=== PATIENT | female | born 1995 | race Caucasian/White ===

== ENCOUNTER 2016-03-24 21:06 | Emergency (ER) | payer MEDICAID ==
[~2016-03-24] VITALS: Ht 162.6 cm; Wt 81.6 kg
[~2016-03-24 21:06] MED LIST: ALBU17AE26 INH
[2016-03-24 21:23] VITALS: BP 139/81; PULSE 81; RESP 18; TEMP 97.2; O2SAT 99
[2016-03-24] MEDS ORDERED: HYDROcodone/ACETAMIN 7.5-325 MG TAB PO ONE (21:30)
[2016-03-24] MEDS ORDERED: KETOROLAC TROMETHAMINE 60 MG/2 ML VIAL IM ONE (21:30)
[2016-03-24 22:25] VITALS: BP 125/80; PULSE 80; RESP 18; TEMP 97.2; O2SAT 99
== END 2016-03-24 22:25 | disposition home or self-care (01) ==
LOC: SED 21:06
DX: M22.2X1 Patellofemoral disorders, right knee (principal)
CPT/HCPCS: 73564; 81025; 96372; 99284; J1885

== ENCOUNTER 2016-09-22 22:13 | Emergency (ER) | payer MEDICAID ==
[~2016-09-22] VITALS: Ht 162.6 cm; Wt 90.7 kg
[2016-09-22 22:23] VITALS: BP_SYST 117
[2016-09-23] MEDS ORDERED: DIPHENHYDRAMINE HCL 25 MG CAPSULE PO ONE (01:00)
[2016-09-23] MEDS ORDERED: HYDROcodone/ACETAMIN 10-325 MG TAB PO ONE (01:00)
[2016-09-23] MEDS ORDERED: IBUPROFEN 800 MG TABLET PO ONE (01:00)
[2016-09-23 01:15] VITALS: BP_SYST 114
[2016-09-23 02:32] LABS: BILIRUBIN,URINE NEGATIVE (NEGATIVE); CLARITY/URINE CLEAR (CLEAR); COLOR,URINE YELLOW (YELLOW); GLUCOSE,URINE NEGATIVE (NEGATIVE); KETONES,URINE NEGATIVE (NEGATIVE); LEUKOCYTE ESTERASE ,URINE NEGATIVE (NEGATIVE); NITRITE, URINE NEGATIVE (NEGATIVE); PH,URINE 5.5 (5.0-8.0); PROTEIN URINE NEGATIVE (NEGATIVE); UROBILINOGEN,URINE 0.2 (0.2-1.0)
[2016-09-23 02:35] LABS: BLOOD, URINE TRACE (NEGATIVE)
[2016-09-23 02:47] LABS: BACTERIA,URINE MODERATE /HPF (None Seen); WBC,URINE 0-3 /HPF (0-3)
== END 2016-09-23 01:15 | disposition home or self-care (01) ==
LOC: SED 22:13
DX: H66.93 Otitis media, unspecified, bilateral (principal); R51 Headache; J45.909 Unspecified asthma, uncomplicated; R09.89 Other specified symptoms and signs involving the circulatory and respiratory systems
CPT/HCPCS: 70450; 81000; 81025; 87086; 99285; Q0163

== ENCOUNTER 2017-09-24 18:39 | Emergency (ER) | payer MEDICAID ==
[~2017-09-24] VITALS: Ht 162.6 cm; Wt 83.9 kg
[2017-09-24 18:51] VITALS: BP_SYST 129
[2017-09-24 19:41] VITALS: BP_SYST 128
== END 2017-09-24 19:41 | disposition home or self-care (01) ==
LOC: SED 18:39
DX: O9A.212 Injury, poisoning and certain other consequences of external causes complicating pregnancy, second trimester (principal); S90.851A Superficial foreign body, right foot, initial encounter; J45.909 Unspecified asthma, uncomplicated; Z3A.24 24 weeks gestation of pregnancy; W45.8XXA Other foreign body or object entering through skin, initial encounter; Y93.89 Activity, other specified; Y92.89 Other specified places as the place of occurrence of the external cause; Y99.8 Other external cause status
CPT/HCPCS: 81002-TC; 96361; 99284

== ENCOUNTER 2019-08-11 21:15 | Emergency (ER) | payer MEDICAID, SELFPAY ==
[~2019-08-11] VITALS: Ht 162.6 cm; Wt 92.5 kg
[2019-08-11 21:50] VITALS: BP_SYST 122
[2019-08-11] MEDS ORDERED: ACETAMINOPHEN 500 MG TABLET PO ONE (22:00)
[2019-08-11] MEDS ORDERED: GLU500 PO (22:04)
[2019-08-11] MEDS ORDERED: GLIP5TAB13 PO (22:06)
[2019-08-11] MEDS ORDERED: LISI2.5T48 PO (22:06)
[2019-08-11] MEDS ORDERED: ALBU8.5H8 INH (22:06)
[2019-08-11] MEDS ORDERED: Atorvastatin PO (22:08)
[2019-08-11 22:31] LABS: BASOPHILS % (AUTO) 0.4 % (0.0-2.0); EOSINOPHILS % (AUTO) 0.2 % (0.0-4.0); HEMATOCRIT 37.5 % (36-48); HEMOGLOBIN 12.3 g/dL (12.0-16.0); LYMPHOCYTES # (AUTO) 1.2 K/uL (1.0-5.5); LYMPHOCYTES % (AUTO) 28.2 % (20.5-51.5); MEAN CORPUSCULAR HEMOGLOBIN 25 pg (27-31); MEAN CORPUSCULAR HGB CONC 33 % (32-36); MEAN CORPUSCULAR VOLUME 77 fL (79.0-98.0); MONOCYTES # (AUTO) 0.3 K/uL (0.0-1.0); NEUTROPHILS # (AUTO) 2.8 K/uL (1.8-7.7); NEUTROPHILS % (AUTO) 64.2 % (40.0-70.0); PLATELET COUNT (AUTO) 204 K/uL (130-430); RED BLOOD CELL COUNT(AUTO) 4.86 MIL/uL (4.2-6.2); RED CELL DISTRIBUTION WIDTH 14.3 % (9.0-15.0); WHITE BLOOD COUNT (AUTO) 4.4 K/uL (4.8-10.8)
[2019-08-11 22:45] LABS: CALCIUM 8.1 mg/dL (8.4-11.0); CREATININE 0.73 mg/dL (0.55-1.30); POTASSIUM 3.8 mmol/L (3.5-5.1)
[2019-08-11 22:54] LABS: PROTHROMBIN TIME 10.3 SECS (9.5-12.5)
[2019-08-11 22:55] LABS: ALBUMIN 3.7 g/dL (3.4-4.8); C-REACTIVE PROTEIN QUANT 2.7 mg/dL (0-0.5); TOTAL BILIRUBIN 0.3 mg/dL (0.0-1.0)
[2019-08-11 23:13] LABS: BILIRUBIN,URINE NEGATIVE (NEGATIVE); BLOOD, URINE 3+ (NEGATIVE); CLARITY/URINE CLOUDY (CLEAR); COLOR,URINE ORANGE (YELLOW); GLUCOSE,URINE NEGATIVE (NEGATIVE); KETONES,URINE TRACE (NEGATIVE); LEUKOCYTE ESTERASE ,URINE TRACE (NEGATIVE); NITRITE, URINE NEGATIVE (NEGATIVE); PROTEIN URINE 1+ (NEGATIVE)
[2019-08-11 23:18] LABS: BACTERIA,URINE FEW /HPF (None Seen); RBC,URINE >100 /HPF (0-3)
[2019-08-11] MEDS ORDERED: ONDANSETRON 4 MG ODT TAB PO ONE (23:30)
[2019-08-11] MEDS ORDERED: IBUPROFEN 800 MG TABLET PO ONE (23:30)
[2019-08-12 02:27] VITALS: BP_SYST 104
== END 2019-08-12 02:27 | disposition home or self-care (01) ==
LOC: SED 21:15
DX: U07.1 COVID-19 (principal); J45.909 Unspecified asthma, uncomplicated; Z79.84 Long term (current) use of oral hypoglycemic drugs; Z79.899 Other long term (current) drug therapy
CPT/HCPCS: 36415; 36600; 71045; 80053; 81000; 82550; 82728; 82803; 82962; 83605; 83615; 83880; 84484; 84702; 85025; 85379; 85384; 85610; 85730; 86140; 87040; 87086; 93005; 99285; Q0162; U0003; C9803-CS

== ENCOUNTER 2019-08-15 12:09 | Emergency (ER) | payer MEDICAID, SELFPAY ==
[~2019-08-15] VITALS: Ht 162.6 cm; Wt 90.7 kg
[~2019-08-15 12:09] MED LIST changes: -ALBU17AE26 INH; +ALBU8.5H8 INH; +Atorvastatin PO; +GLIP5TAB13 PO; +GLU500 PO; +LISI2.5T48 PO
[2019-08-15 12:10] VITALS: BP_SYST 110
--- NOTE | 2019-08-15 12:10 | NUR ---
Patient triaged and placed in OUTSIDE TENT. VSS and patient appears in no acute distress at this time. Accompanied by SELF , awaiting available bed, and MD notified of need for MSE.
--- NOTE | 2019-08-15 12:15 | NUR ---
PT STATES SHE DOES NOT WANT TO WAIT, JUST WANTS ANTIBIOTICS. EXPLAINED SHE WILL HAVE TO BE SEEN BY MD.
--- NOTE | 2019-08-15 12:32 | NUR ---
PT LEFT WITHOUT BEING SEEN BY
== END 2019-08-15 12:32 | disposition left against medical advice (07) ==
LOC: SED 12:09
DX: R53.1 Weakness (principal); Z53.21 Procedure and treatment not carried out due to patient leaving prior to being seen by health care provider

== ENCOUNTER 2020-11-17 08:37 | Emergency (ER) | payer MEDICAID, SELFPAY ==
[~2020-11-17] VITALS: Ht 162.6 cm; Wt 102.1 kg
--- NOTE | 2020-11-17 08:40 | NUR ---
Placed in room 7 . Placed on threat monitoring analyst, blood pressure machine and pulse oximeter. To gown for exam. Side rails up.
--- NOTE | 2020-11-17 08:45 | NUR ---
Pt walked in to ER with c/o abdominal pain / radiating to back, n/v and diarrhea since 99. Denies any fevers at this time. Reports possible food poisoning. V/S stable, no acute distress noted.
[2020-11-17 08:46] VITALS: BP_SYST 138
--- NOTE | 2020-11-17 09:09 | NUR ---
ER Dr. Madrid at bedside examining patient.
[2020-11-17] MEDS ORDERED: NACL 0.9% 1,000 ML IV ONE (09:15)
[2020-11-17] MEDS ORDERED: KETOROLAC TROMETHAMINE 30 MG VIAL IVP ONE (09:15)
[2020-11-17] MEDS ORDERED: ONDANSETRON HCL 4 MG/2 ML VIAL IVP ONE (09:15)
--- NOTE | 2020-11-17 09:20 | NUR ---
# 20 gauge angiocath placed to LAC. Use of asceptic technique. Opsite placed over site. Blood return noted. Blood for lab drawn from site. Flushed with 10 cc of normal saline. No evidence of infiltration noted. Patient tolerated well.
[2020-11-17 09:28] LABS: BILIRUBIN,URINE NEGATIVE (NEGATIVE); BLOOD, URINE 1+ (NEGATIVE); CLARITY/URINE CLEAR (CLEAR); COLOR,URINE YELLOW (YELLOW); GLUCOSE,URINE NEGATIVE (NEGATIVE); KETONES,URINE NEGATIVE (NEGATIVE); LEUKOCYTE ESTERASE ,URINE NEGATIVE (NEGATIVE); NITRITE, URINE NEGATIVE (NEGATIVE); PROTEIN URINE NEGATIVE (NEGATIVE); UROBILINOGEN,URINE 0.2 (0.2-1.0)
[2020-11-17 09:34] LABS: BASOPHILS # (AUTO) 0.1 K/uL (0.0-0.2); BASOPHILS % (AUTO) 0.8 % (0.0-2.0); EOSINOPHILS # (AUTO) 0.2 K/uL (0.0-0.4); EOSINOPHILS % (AUTO) 2.3 % (0.0-4.0); HEMATOCRIT 36.7 % (36-48); HEMOGLOBIN 12.3 g/dL (12.0-16.0); LYMPHOCYTES # (AUTO) 1.3 K/uL (1.0-5.5); LYMPHOCYTES % (AUTO) 17.6 % (20.5-51.5); MEAN CORPUSCULAR HEMOGLOBIN 26 pg (27-31); MEAN CORPUSCULAR HGB CONC 34 % (32-36); MEAN CORPUSCULAR VOLUME 78 fL (79.0-98.0); MONOCYTES # (AUTO) 0.3 K/uL (0.0-1.0); MONOCYTES % (AUTO) 4.7 % (1.7-9.3); NEUTROPHILS # (AUTO) 5.4 K/uL (1.8-7.7); NEUTROPHILS % (AUTO) 74.6 % (40.0-70.0); PLATELET COUNT (AUTO) 362 K/uL (130-430); RED BLOOD CELL COUNT(AUTO) 4.68 MIL/uL (4.2-6.2); RED CELL DISTRIBUTION WIDTH 14.4 % (9.0-15.0); WHITE BLOOD COUNT (AUTO) 7.2 K/uL (4.8-10.8)
[2020-11-17 09:46] LABS: CALCIUM 8.8 mg/dL (8.4-11.0); CREATININE 0.59 mg/dL (0.55-1.30); POTASSIUM 3.9 mmol/L (3.5-5.1)
[2020-11-17 09:47] LABS: BACTERIA,URINE RARE /HPF (None Seen); MUCUS,URINE 1+ /LPF (None Seen); WBC,URINE 0-3 /HPF (0-3)
[2020-11-17 09:52] LABS: ALBUMIN 3.8 g/dL (3.4-4.8); TOTAL BILIRUBIN 0.3 mg/dL (0.0-1.0)
[2020-11-17] MEDS ORDERED: PANTOPRAZOLE SODIUM 40 MG/VIAL (PROTONIX) IVP ONE (10:45)
[2020-11-17] MEDS ORDERED: ONDA-8 TL (10:56)
[2020-11-17] MEDS ORDERED: PRO40 PO (10:56)
--- NOTE | 2020-11-17 11:10 | NUR ---
Patient given written and verbal discharge instructions and verbalizes understanding. ER MD discussed with patient the results and treatment provided. Patient in stable condition. ID arm band removed. IV catheter removed intact and dressing applied, no active bleeding. Rx of protonix and zofran given. Patient educated on pain management and to follow up with PMD. Pain Scale 0. Opportunity for questions provided and answered. Medication side effect fact sheet provided.
[2020-11-17 11:38] VITALS: BP_SYST 138
== END 2020-11-17 11:38 | disposition home or self-care (01) ==
LOC: SED 08:37
DX: R10.84 Generalized abdominal pain (principal); R11.2 Nausea with vomiting, unspecified; R19.7 Diarrhea, unspecified; I10 Essential (primary) hypertension; J45.909 Unspecified asthma, uncomplicated; E11.9 Type 2 diabetes mellitus without complications; Z20.822 Contact with and (suspected) exposure to COVID-19
CPT/HCPCS: 36415; 80053; 81000; 83690; 85025; 87426; 96361; 96374; 96375; 99284; C9113; J1885; J2405; J7030

== ENCOUNTER 2021-10-12 21:08 | Emergency (ER) | payer MEDICAID ==
[~2021-10-12] VITALS: Ht 162.6 cm; Wt 96.2 kg
[~2021-10-12 21:08] MED LIST changes: +ONDA-8 TL; +PRO40 PO
[2021-10-12 21:18] VITALS: BP_SYST 116
--- NOTE | 2021-10-12 21:34 | NUR ---
Patient to ER bed 03 to gown for evaluation. Side rails up.
--- NOTE | 2021-10-12 21:38 | NUR ---
Patient presents to ED from home with c/o dizziness and elevated BS of 430. Patient's BS 455 upon arrival. Patient reports hx of htn and dm; patient is non compliant with meds. Patient states "I was trying to control my health with diet but I guess I didnt do a good job at it. If I need to go back on medications I will." Patient A/Ox4, VSS, ambulatory, resp even and unlabored. NAD noted at this time.
--- NOTE | 2021-10-12 21:38 | NUR ---
Received report from Jayne NERI, assuming care of patient at this time.
--- NOTE | 2021-10-12 21:40 | NUR ---
MADDY Marrero at bedside.
--- NOTE | 2021-10-12 22:14 | NUR ---
Lab at bedside.
[2021-10-12 22:28] LABS: BASOPHILS % (AUTO) 0.6 % (0.0-2.0); EOSINOPHILS # (AUTO) 0.1 K/uL (0.0-0.4); EOSINOPHILS % (AUTO) 2.5 % (0.0-4.0); HEMOGLOBIN 11.3 g/dL (12.0-16.0); LYMPHOCYTES % (AUTO) 36.3 % (20.5-51.5); MEAN CORPUSCULAR HEMOGLOBIN 26 pg (27-31); MEAN CORPUSCULAR HGB CONC 33 % (32-36); MEAN CORPUSCULAR VOLUME 77 fL (79.0-98.0); MONOCYTES # (AUTO) 0.3 K/uL (0.0-1.0); MONOCYTES % (AUTO) 6.1 % (1.7-9.3); NEUTROPHILS % (AUTO) 54.5 % (40.0-70.0); PLATELET COUNT (AUTO) 256 K/uL (130-430); RED BLOOD CELL COUNT(AUTO) 4.44 MIL/uL (4.2-6.2); RED CELL DISTRIBUTION WIDTH 14.1 % (9.0-15.0); WHITE BLOOD COUNT (AUTO) 5.5 K/uL (4.8-10.8)
--- NOTE | 2021-10-12 23:11 | NUR ---
CRITICAL VALUE REPORTED BY LAB. SEE INTERVENTIONS.
--- NOTE | 2021-10-12 23:14 | NUR ---
# 20 gauge angiocath placed to right AC. Use of asceptic technique. Opsite placed over site. Blood return noted. Flushed with 10 cc of normal saline. No evidence of infiltration noted. Patient tolerated well.
[2021-10-12] MEDS ORDERED: NACL 0.9% 1,000 ML IV ONE (23:15)
[2021-10-12 23:20] LABS: ACETONE, SERUM NEGATIVE (NEGATIVE)
[2021-10-12 23:23] LABS: ANION GAP 8 (5-15); CALCIUM 9.3 mg/dL (8.4-11.0); CHLORIDE 98 mmol/L (98-107); GLUCOSE 444 mg/dL (70-99); POTASSIUM 4.2 mmol/L (3.5-5.1); SODIUM SERUM 132 mmol/L (136-145); UREA NITROGEN, BLOOD 11 mg/dL (8-21)
[2021-10-12 23:24] LABS: ALANINE AMINOTRANSFERASE 186 U/L (12-78); ALBUMIN 3.5 g/dL (3.4-4.8); AMYLASE 51 U/L (0-100); ASPARTATE AMINOTRANSFERASE 78 U/L (10-37); CREATININE 0.68 mg/dL (0.55-1.30); GFR AFRICAN AMERICAN 133 mL/min (>90); LIPASE 153 U/L (73-393); TOTAL BILIRUBIN 0.2 mg/dL (0.0-1.0)
[2021-10-12] MEDS ORDERED: INSULIN REGULAR, HUMAN 10 UNITS/0.1 ML INJ IVP ONE (23:30)
--- NOTE | 2021-10-13 00:37 | NUR ---
Patient resting in bed with side rails raised. Patient given #1 cup of water. Nad noted at this time.
[2021-10-13 01:38] VITALS: BP_SYST 140
--- NOTE | 2021-10-13 01:38 | NUR ---
Patient given written and verbal discharge instructions and verbalizes understanding. ER MD discussed with patient the results and treatment provided. Patient in stable condition. ID arm band removed. IV catheter removed intact and dressing applied, no active bleeding. Patient educated on pain management and to follow up with PMD. Pain Scale 2/10. Opportunity for questions provided and answered. Medication side effect fact sheet provided. Patient A/Ox4, VSS, ambulatory, resp even and unlabored. Nad noted at this time.
== END 2021-10-13 01:38 | disposition home or self-care (01) ==
LOC: SED 21:08
DX: E11.65 Type 2 diabetes mellitus with hyperglycemia (principal); R73.9 Hyperglycemia, unspecified; J45.909 Unspecified asthma, uncomplicated; R53.1 Weakness; R42 Dizziness and giddiness; R11.0 Nausea; Z79.899 Other long term (current) drug therapy
CPT/HCPCS: 99283; 96360; 80053; 82009; 82150; 82962; 83690; 85025; 36415; 81025; 83605; 96372; J1815; J7030

== ENCOUNTER 2022-06-23 11:46 | Emergency (ER) | payer MEDICAID ==
[~2022-06-23] VITALS: Ht 162.6 cm; Wt 83.9 kg
[2022-06-23 11:51] VITALS: BP_SYST 129
[2022-06-23 12:11] LABS: BILIRUBIN,URINE NEGATIVE (NEGATIVE); BLOOD, URINE NEGATIVE (NEGATIVE); COLOR,URINE YELLOW (YELLOW); GLUCOSE,URINE 3+ (NEGATIVE); KETONES,URINE NEGATIVE (NEGATIVE); LEUKOCYTE ESTERASE ,URINE NEGATIVE (NEGATIVE); NITRITE, URINE NEGATIVE (NEGATIVE); PROTEIN URINE NEGATIVE (NEGATIVE); UROBILINOGEN,URINE 0.2 (0.2-1.0)
[2022-06-23 12:12] LABS: CLARITY/URINE SLIGHTLY HAZY (CLEAR)
[2022-06-23 12:17] LABS: BACTERIA,URINE RARE /HPF (None Seen); RBC,URINE 0-3 /HPF (0-3); WBC,URINE 0-3 /HPF (0-3)
[2022-06-23 12:30] LABS: BASOPHILS % (AUTO) 0.8 % (0.0-2.0); EOSINOPHILS # (AUTO) 0.2 K/uL (0.0-0.4); EOSINOPHILS % (AUTO) 3.4 % (0.0-4.0); HEMATOCRIT 37.8 % (36-48); HEMOGLOBIN 12.5 g/dL (12.0-16.0); LYMPHOCYTES # (AUTO) 1.8 K/uL (1.0-5.5); LYMPHOCYTES % (AUTO) 32.7 % (20.5-51.5); MEAN CORPUSCULAR HEMOGLOBIN 27 pg (27-31); MEAN CORPUSCULAR HGB CONC 33 % (32-36); MEAN CORPUSCULAR VOLUME 81 fL (79.0-98.0); MONOCYTES # (AUTO) 0.3 K/uL (0.0-1.0); NEUTROPHILS # (AUTO) 3.1 K/uL (1.8-7.7); NEUTROPHILS % (AUTO) 57.1 % (40.0-70.0); PLATELET COUNT (AUTO) 281 K/uL (130-430); RED BLOOD CELL COUNT(AUTO) 4.67 MIL/uL (4.2-6.2); RED CELL DISTRIBUTION WIDTH 13.9 % (9.0-15.0); WHITE BLOOD COUNT (AUTO) 5.5 K/uL (4.8-10.8)
[2022-06-23 12:42] LABS: CALCIUM 8.4 mg/dL (8.4-11.0); CREATININE 0.61 mg/dL (0.55-1.30)
[2022-06-23] MEDS ORDERED: MAG HYDROX/AL HYDROX/SIMETH 30 ML, DICYCLOMINE HCL 20 MG, LIDOCAINE VISCOUS 2% 15ML (PO... PO ONE ×3 (12:45)
[2022-06-23 12:47] LABS: ALBUMIN 3.3 g/dL (3.4-4.8); TOTAL BILIRUBIN 0.3 mg/dL (0.0-1.0)
[2022-06-23] MEDS ORDERED: OMEP20TA20 PO ×2 (13:30→13:33)
[2022-06-23] MEDS ORDERED: ANT30 PO (13:34)
[2022-06-23 14:00] VITALS: BP_SYST 137
== END 2022-06-23 14:02 | disposition home or self-care (01) ==
LOC: SED 11:46
DX: R10.13 Epigastric pain (principal); M54.6 Pain in thoracic spine; J45.909 Unspecified asthma, uncomplicated; E11.9 Type 2 diabetes mellitus without complications; F12.90 Cannabis use, unspecified, uncomplicated; Z79.899 Other long term (current) drug therapy
CPT/HCPCS: 99283; 80053; 81000; 83690; 85025; 36415; 81025; J2001

== ENCOUNTER 2023-03-09 21:51 | Emergency (ER) | payer MEDICAID ==
[~2023-03-09] VITALS: Ht 162.6 cm; Wt 93.4 kg
[~2023-03-09 21:51] MED LIST changes: +ANT30 PO; +OMEP20TA20 PO
[2023-03-09 22:12] VITALS: BP_SYST 119; PULSE 121; RESP 20; TEMP 97.2; O2SAT 95
[2023-03-09 22:57] LABS: BILIRUBIN,URINE NEGATIVE (NEGATIVE); BLOOD, URINE 3+ (NEGATIVE); COLOR,URINE YELLOW (YELLOW); GLUCOSE,URINE TRACE (NEGATIVE); KETONES,URINE TRACE (NEGATIVE); LEUKOCYTE ESTERASE ,URINE 1+ (NEGATIVE); NITRITE, URINE NEGATIVE (NEGATIVE); PROTEIN URINE 2+ (NEGATIVE)
[2023-03-09 23:11] LABS: CLARITY/URINE HAZY (CLEAR)
[2023-03-09 23:15] LABS: BACTERIA,URINE MODERATE /HPF (None Seen); MUCUS,URINE 3+ /LPF (None Seen)
[2023-03-09 23:40] LABS: BASOPHILS % (AUTO) 0.1 % (0.0-2.0); EOSINOPHILS % (AUTO) 0.3 % (0.0-4.0); HEMATOCRIT 28.7 % (36-48); HEMOGLOBIN 9.7 g/dL (12.0-16.0); LYMPHOCYTES # (AUTO) 0.8 K/uL (1.0-5.5); LYMPHOCYTES % (AUTO) 7.5 % (20.5-51.5); MEAN CORPUSCULAR HEMOGLOBIN 27 pg (27-31); MEAN CORPUSCULAR HGB CONC 34 % (32-36); MEAN CORPUSCULAR VOLUME 80 fL (79.0-98.0); MONOCYTES # (AUTO) 0.4 K/uL (0.0-1.0); MONOCYTES % (AUTO) 4.1 % (1.7-9.3); NEUTROPHILS # (AUTO) 9.3 K/uL (1.8-7.7); PLATELET COUNT (AUTO) 411 K/uL (130-430); RED CELL DISTRIBUTION WIDTH 16.8 % (9.0-15.0); WHITE BLOOD COUNT (AUTO) 10.6 K/uL (4.8-10.8)
[2023-03-09 23:54] LABS: CALCIUM 8.5 mg/dL (8.4-11.0); CREATININE 0.78 mg/dL (0.55-1.30); POTASSIUM 3.7 mmol/L (3.5-5.1)
[2023-03-09 23:58] LABS: ALBUMIN 2.1 g/dL (3.4-4.8); BILIRUBIN,DIRECT 0.2 mg/dL (0.0-0.3); TOTAL BILIRUBIN 0.4 mg/dL (0.0-1.0); TOTAL PROTEIN, SERUM 6.7 g/dL (6.4-8.3)
[2023-03-10] MEDS ORDERED: cefTRIAXone 1 GM in LIDOCAINE 1%, 20 ML MDV 2.1 ML IM ONE (00:15)
[2023-03-10] MEDS ORDERED: KETOROLAC TROMETHAMINE 60 MG/2 ML VIAL IM ONE (00:15)
[2023-03-10] MEDS ORDERED: NITR-85 PO (01:29)
[2023-03-10 01:35] VITALS: BP_SYST 119; PULSE 103; RESP 20; TEMP 97.8; O2SAT 98
== END 2023-03-10 01:35 | disposition home or self-care (01) ==
LOC: SED 21:51
DX: N39.0 Urinary tract infection, site not specified (principal); R10.84 Generalized abdominal pain; R19.7 Diarrhea, unspecified; J45.909 Unspecified asthma, uncomplicated; E11.9 Type 2 diabetes mellitus without complications; Z79.899 Other long term (current) drug therapy
CPT/HCPCS: 99285; 74176; 80076; 80048; 81001; 85025; 87086; 36415; 76376; 81025; 81000; 96372; 81015; J0696; J1885; J2001

== ENCOUNTER 2023-08-29 22:52 | Emergency (ER) | payer MEDICAID ==
[~2023-08-29] VITALS: Ht 162.6 cm; Wt 99.8 kg
[~2023-08-29 22:52] MED LIST changes: -GLIP5TAB13 PO; +GLIP5TAB23 PO; +NITR-85 PO
[2023-08-29 23:08] VITALS: BP_SYST 133; PULSE 85; RESP 18; TEMP 97.7; O2SAT 97
[2023-08-30 01:05] LABS: BASOPHILS # (AUTO) 0.3 K/uL (0.0-0.2); BASOPHILS % (AUTO) 3.2 % (0.0-2.0); EOSINOPHILS # (AUTO) 0.2 K/uL (0.0-0.4); EOSINOPHILS % (AUTO) 1.9 % (0.0-4.0); HEMATOCRIT 34.9 % (36-48); HEMOGLOBIN 11.9 g/dL (12.0-16.0); LYMPHOCYTES # (AUTO) 2.2 K/uL (1.0-5.5); LYMPHOCYTES % (AUTO) 25.3 % (20.5-51.5); MEAN CORPUSCULAR HEMOGLOBIN 27 pg (27-31); MEAN CORPUSCULAR HGB CONC 34 % (32-36); MEAN CORPUSCULAR VOLUME 79 fL (79.0-98.0); MONOCYTES # (AUTO) 0.4 K/uL (0.0-1.0); MONOCYTES % (AUTO) 4.4 % (1.7-9.3); NEUTROPHILS # (AUTO) 5.6 K/uL (1.8-7.7); NEUTROPHILS % (AUTO) 65.2 % (40.0-70.0); PLATELET COUNT (AUTO) 328 K/uL (130-430); RED BLOOD CELL COUNT(AUTO) 4.42 MIL/uL (4.2-6.2); RED CELL DISTRIBUTION WIDTH 14.4 % (9.0-15.0); WHITE BLOOD COUNT (AUTO) 8.6 K/uL (4.8-10.8)
[2023-08-30] MEDS: NACL 0.9% 1,000 ML IV ONE (01:07)
[2023-08-30 01:27] LABS: ALBUMIN 3.7 g/dL (3.4-4.8); BILIRUBIN,DIRECT 0.1 mg/dL (0.0-0.3); CALCIUM 9.2 mg/dL (8.4-11.0); CREATININE 0.64 mg/dL (0.55-1.30); POTASSIUM 3.7 mmol/L (3.5-5.1); TOTAL BILIRUBIN 0.2 mg/dL (0.0-1.0); TOTAL PROTEIN, SERUM 8.1 g/dL (6.4-8.3)
[2023-08-30] MEDS: INSULIN REGULAR, HUMAN 10 UNITS/0.1 ML, 3 ML VIAL IVP ONE (01:45)
[2023-08-30] MEDS ORDERED: METF-1069 PO (02:30)
[2023-08-30 02:38] VITALS: BP_SYST 130; PULSE 83; RESP 17; TEMP 97.8; O2SAT 97
== END 2023-08-30 02:38 | disposition home or self-care (01) ==
LOC: SED 22:52
DX: E11.65 Type 2 diabetes mellitus with hyperglycemia (principal); J45.909 Unspecified asthma, uncomplicated; Z79.899 Other long term (current) drug therapy; Z79.2 Long term (current) use of antibiotics
CPT/HCPCS: 99283; 80076; 80048; 83690; 85025; 36415; 82948; 96374; 96361; 81025; J1815; J7030